=== PATIENT | female | born 1945 | race Caucasian/White ===

== ENCOUNTER → 2017-11-02 | Outpatient (REF) | payer MEDICARE ==
[2015-12-21 12:52] VITALS: BMI 32.4
[~2017-11-02] MED LIST: ALP5 PO; ALPR-429 PO; AMOX500T10 PO; AZIT500T47 PO; CEPH-13 PO; CEPH500T7 PO; CETI10CA8 PO; CITA-145 PO; CLAR-1 PO; CYCL10TA29 PO; DIABETES PILL; DICY-42 PO; FLUC150T40 PO; FURO-45 PO; GLIP-137 PO; GLIP2.5T PO; HYDR-4309 PO; IBU800 PO; IPRA0.2S31 IH; KET10 PO; LEVI SUBQ; LEVO-3 PO; LEVO75TA73 PO; LISI2.5T60 PO; LISI5TAB25 PO; MECL25TA9 PO; MESA800T3 PO; METF-1 PO; METH-278 PO; METH4TAB57 PO; METH4TAB67 PO; METHO500 PO; METO-224 PO; METXR500 PO; MONT10TA PO; Mesalamine PO; NYST15PO4 TP; ONDA4TAB PO; ONDA4TAB97 PO; OXYC-865 PO; OXYC5CAP21 PO; PANT40TA65 PO; PEN250 PO; PRE5 PO; PRED-1 PO; PRED20TA6 PO; PROM-110 PO; SIMV-49 PO; SIMV5TAB60 PO; SITA100T PO; SOD1POWD PO; SPIR25TA78 PO; SULF-198 PO; TRAM-420 PO; [UNRECOGNIZED DRUG - CODE] PO; [UNRECOGNIZED DRUG - OTHER]; occuvite
[2017-11-02 11:55] LABS: PLATELET COUNT, AUTOMATED 213 K/uL (150-450)
== END ==
PROVIDERS: ATTEND Physician Assistant Medical
DX: R06.02 Shortness of breath (principal); R05 Cough
CPT/HCPCS: 82040; 82247; 82310; 82374; 82435; 82565; 82947; 83880; 84075; 84132; 84155; 84295; 84450; 84460; 84520; 85025